=== PATIENT | male | born 1965 ===

== ENCOUNTER 2018-08-04 07:29 | Outpatient (CLI) | payer BC ==
[~2018-08-04] VITALS: Ht 172.7 cm; Wt 76.8 kg
[2018-08-04] MEDS ORDERED: ASPIRIN E.C. 8181 MG PO (07:50)
[2018-08-04] MEDS ORDERED: ATIVAN 0.50.5 MG/TAB PO (07:51)
[2018-08-04] MEDS ORDERED: CELEXA 20MG20 MG/TAB PO (07:52)
[2018-08-04] MEDS ORDERED: TOPROL XL 25MG25 MG PO (07:52)
[2018-08-04 07:59] VITALS: BP 112/84; PULSE 64; TEMP 98
[2018-08-04 08:09] LABS: HEMOGLOBIN 15.6 g/dl (13.5-18.0); MEAN CELL VOLUME 90 fl (80.0-100.0); MEAN CORPUSCULAR HEMOGLOBIN 31 pg (27.0-31.0); MEAN CORPUSCULAR HGB CONC 34 g/dl (33.0-37.0); MEAN PLATELET VOLUME 9.5 fl (7.4-10.4); PLATELET COUNT 284 K/mm3 (130-400); RED BLOOD COUNT 5.09 M/mm3 (4.20-5.60); REDCELL DISTRIBUTION WIDTH-CV 12.3 % (11.5-14.5)
[2018-08-04 08:30] VITALS: BP 93/69; PULSE 57
[2018-08-04 09:00] VITALS: BP 101/77; PULSE 63
[2018-08-04 10:00] VITALS: BP 115/85; PULSE 58
== END 2018-08-04 10:30 | disposition home or self-care (01) ==
LOC: COL.CAR 07:29
PROVIDERS: Internal Medicine Cardiovascular Disease
DX: R55 Syncope and collapse (principal); E78.5 Hyperlipidemia, unspecified; R00.2 Palpitations; Z79.82 Long term (current) use of aspirin; Z87.891 Personal history of nicotine dependence; Z80.9 Family history of malignant neoplasm, unspecified
CPT/HCPCS: C1764; J7030